=== PATIENT | female | born 1940 | race Hispanic/Latino ===

== ENCOUNTER 2020-05-09 16:19 | Inpatient (IN) | payer MEDICARE, MEDICAID ==
[2020-05-09] MEDS ORDERED: Acetaminophen 500 MG TAB PO PRN (20:56)
[2020-05-09] MEDS ORDERED: BUPROPION 75 MG PO SCH (21:00)
[2020-05-09] MEDS ORDERED: Dextrose 5% in Water 1,000 ML IV PRN (21:01)
[2020-05-09] MEDS ORDERED: HumaLOG 300 UNITS/3 ML VIAL SC PRN (21:01)
[2020-05-09] MEDS ORDERED: Dextrose 50% Abboject 50 ML SYRINGE SLOW IVP PRN (21:01)
[2020-05-09] MEDS ORDERED: Albuterol Sulfate 2.5 mg/3 ml Neb NEB PRN (21:03)
[2020-05-09] MEDS ORDERED: Polyethylene Glycol 3350 17 GM Packet PO PRN (21:08)
[2020-05-10] MEDS: Carvedilol 3.125 MG TAB PO SCH ×3 (04:48→20:44)
[2020-05-10 05:09] LABS: #Eosinphils 0.2 thou/uL (0.0-0.7); #Lymphocytes 1.6 thou/uL (1.20-3.40); #Monocytes 0.7 thou/uL (0.11-0.59); #Neutrophils 3.8 thou/uL (1.40-6.50); %Basophils 0.6 % (0.0-1.0); %Eosinophils 2.7 % (0.0-10.0); %Lymphocytes 25.1 % (21.0-51.0); %Monocytes 11.2 % (0.0-10.0); %Neutrophils 60.3 % (42.0-75.0); Hemoglobin 6.3 g/dL (12.0-16.0); Mean Corpuscular HGB CONC 31.9 g/dL (32.0-36.0); Mean Corpuscular Hemoglobin 26.9 pg (27.0-31.0); Mean Corpuscular Volume 84.3 fL (78.0-98.0); Mean Platelet Volume 6.8 fL (7.4-10.4); Platelet Count 129 thou/uL (130-400); RBC Distribution Width 14.8 % (11.5-14.5); Red Blood Cell (RBC) Count 2.35 mill/uL (4.20-5.40); White Blood Cell (WBC) Count 6.2 thou/uL (4.8-10.8)
[2020-05-10 05:21] LABS: ALT (SGPT) 9 U/L (8-55); AST (SGOT) 15 U/L (5-34); Albumin 2.7 g/dL (3.4-4.8); Alkaline Phosphatase 78 U/L (40-110); Anion Gap 13 mmol/L (10-20); BUN (Urea Nitrogen) 19 mg/dL (9.8-20.1); Bilirubin, Total 0.5 mg/dL (0.2-1.2); Calc. Creatinine Clearance 61 mL/min (70-130); Carbon Dioxide 22 mmol/L (23-31); Chloride 107 mmol/L (98-107); Globulin 2.4 g/dL (2.4-3.5); Glucose 129 mg/dL (83-110); Potassium 4.5 mmol/L (3.5-5.1); Protein, Total 5.1 g/dL (6.0-8.3); Sodium 137 mmol/L (136-145)
[2020-05-10] MEDS ORDERED: Levothyroxine Sodium 50 MCG TAB PO SCH (06:00)
[2020-05-10] MEDS ORDERED: Milk Of Magnesia 30 ML UDCUP PO PRN (06:15)
[2020-05-10] MEDS ORDERED: Ferrous Sulfate 325 MG TAB PO SCH (08:00)
[2020-05-10] MEDS ORDERED: Glimepiride 2 MG TAB PO SCH (08:00)
[2020-05-10] MEDS ORDERED: Trospium 20 MG TAB PO SCH (09:00)
[2020-05-10] MEDS ORDERED: Furosemide 40 MG TAB PO SCH (09:00)
[2020-05-10] MEDS ORDERED: Non-Formulary Item 1 EACH (Insulin Degludec [Tresiba Flextouch U-100] 100 UNIT/ML Insuln. SQ SCH (09:00)
[2020-05-10] MEDS ORDERED: Aspirin 81 mg Enteric Coated Tablet PO SCH (09:00)
[2020-05-10] MEDS ORDERED: Lantus 1000 UNITS/10 ML VIAL SC SCH (09:00)
[2020-05-10] MEDS ORDERED: Mometasone/Formoterol 200/5 60 PUFF INH SCH (09:00)
[2020-05-10] MEDS ORDERED: Allopurinol 100 MG TAB PO SCH (09:00)
[2020-05-10] MEDS ORDERED: Ezetimibe 10 MG TAB PO SCH (09:00)
[2020-05-10] MEDS ORDERED: FLU VACC QS2020-21(65YR UP)/PF 240 MCG/0.7 ML SYRINGE IM ONE (09:00)
[2020-05-10] MEDS ORDERED: Calcitriol 0.25 MCG CAP PO SCH (09:00)
--- NOTE | 2020-05-10 09:10 | HP ---
CHIEF COMPLAINT: Physical deconditioning with wound care need status post skin graft to left lower extremity. HISTORY OF PRESENT ILLNESS: A 80-year-old female presenting to our long term facility to participate with Physical Therapy and Occupational Therapy along with receiving wound care status post admission at [facility] in [place]. She presented there status post fall within her shower sustaining the injury to her left lower extremity. She has a history of atrial fibrillation for which she was chronically anticoagulated with Eliquis and subsequently developed a large hematoma focal to the left lower extremity. This unfortunately developed into an area of skin necrosis, which required debridement and temporary placement of a wound VAC. She did receive IV cefepime under the guidance of Infectious Disease. She subsequently underwent skin grafting to the site shortly prior to arrival here as well. During her stay in [place], she did require 3 units of packed red blood cells secondary to low hemoglobin levels. Upon repeat of her blood work here this morning, her hemoglobin is notably low again at 6.3, which will require further packed red blood cell transfusion. Of note, her Eliquis has continued to be held. She otherwise appears comfortable and medically stable. PAST MEDICAL HISTORY: Includes type 2 diabetes mellitus, hypertension, hyperlipidemia, gout, asthma, and coronary artery disease. PAST SURGICAL HISTORY: Includes bypass grafting, pacemaker, and left hip surgery along with left lower extremity debridement and skin grafting. SOCIAL HISTORY: She lives in [place] with family members. Nonsmoker with no alcohol or illicit drug use. ALLERGIES: TO NAPROXEN. HOME MEDICATIONS: Include, 1. Wellbutrin 75 mg b.i.d. 2. Detrol 2 mg b.i.d. 3. MiraLAX 17 g daily p.r.n. 4. Levothyroxine 50 mcg daily. 5. Tresiba 18 units daily. 6. Glimepiride 1 mg daily. 7. Lasix 40 mg daily. 8. Zetia 10 mg daily. 9. Dexilant 60 mg daily. 10. Coreg 3.125 mg b.i.d. 11. Calcitriol 0.25 mcg daily. 12. Symbicort two puffs inhaled b.i.d. 13. Atorvastatin 80 mg at bedtime. 14. Aspirin 81 mg daily. 15. Allopurinol 300 mg daily. 16. Tylenol 1000 mg q.6 hours p.r.n. 17. Ventolin inhaler one puff q.6 hours p.r.n. LABORATORY DATA: White blood cell count of 6.2, hemoglobin 6.3, hematocrit 19.8, and platelets are 129. Sodium 137, potassium 4.5, BUN is 19, creatinine 1.08 with GFR of 49, glucose 129, AST 15, ALT is 9. PHYSICAL EXAMINATION: VITAL SIGNS: Temperature is 98, blood pressure 106/56, pulse is 81, respiratory rate is 16, oxygen is 100% on room air. GENERAL: The patient is alert and oriented, in no acute distress. She is obese. HEAD, EYES, EARS, NOSE, AND THROAT: She is normocephalic. She has a small abrasion to the upper central forehead. Pupils are equal, round, and reactive to light. Extraocular muscles are intact. She has moist mucous membranes. NECK: Supple without lymphadenopathy. CARDIOVASCULAR: She has a regular rate and rhythm with a normal S1, S2. She has a 3/6 murmur. RESPIRATORY: Clear to auscultation bilaterally without wheezes, rales, or rhonchi. ABDOMEN: Soft and nontender to palpation. No rebound or guarding. EXTREMITIES: She has no clubbing or cyanosis. She has both of her lower extremities wrapped at present with clean and dry bandages. She is neurovascularly intact distally. SKIN: She has scattered ecchymosis to extremities. NEUROLOGIC: Nonfocal with cranial nerves 2 through 12 grossly intact. MUSCULOSKELETAL: She has generalized weakness. ASSESSMENT AND PLAN: 1. History of left lower extremity hematoma, status post debridement and skin grafting. The patient is afebrile with no leukocytosis. She is status post antibiotic therapy via cefepime. Planned f/u with Dr. Coates in ~1 week. 2. Acute blood loss anemia. Her anticoagulation has been held. She is being typed and crossed to receive 2 units of packed red blood cells. We will start the patient on supplemental iron as she was not already on this. We will trend her CBC. 3. Physical deconditioning. The patient is to participate with Physical Therapy and Occupational Therapy. 4. Paroxysmal atrial fibrillation. The patient is rate controlled and in normal sinus rhythm intake. Anticoagulation is being held as stated. 5. Coronary artery disease, history of bypass grafting. She will continue her statin therapy. 6. Type 2 diabetes mellitus. We will continue her baseline medication regimen for which she is on insulin and oral therapy. We will add a sliding scale Humalog and have a.c. and bedtime glucose checks. 7. Hypothyroidism. Levothyroxine will be continued. 8. Gout. Allopurinol will be continued. 9. Anxiety and depression. We will resume her usual medications for this. 10. Prophylaxis. We will continue GI prophylaxis with her proton pump inhibitor. Anticoagulation will not be provided secondary to her requiring transfusion of packed red blood cells. DISPOSITION: We will plan for the patient to be able to return back to her home when able and stable from a functional status standpoint and stable blood levels. Job ID: [id number] MTDD
[2020-05-10] MEDS ORDERED: BUPROPION 75 MG PO SCH (10:45)
[2020-05-10 11:25] VITALS: BMI 17.7
[2020-05-10 12:10] LABS: Glucose 180 mg/dL (83-110)
[2020-05-10] MEDS ORDERED: Furosemide 20 MG/2 ML VIAL SLOW IVP SCH (13:00)
[2020-05-10] MEDS ORDERED: Albuterol Sulfate 2.5 mg/3 ml Neb NEB PRN (16:47)
[2020-05-10] MEDS ORDERED: Dextrose 5% in Water 1,000 ML IV PRN (16:49)
[2020-05-10] MEDS ORDERED: Dextrose 50% Abboject 50 ML SYRINGE SLOW IVP PRN (16:49)
[2020-05-10] MEDS: Ferrous Sulfate 325 MG TAB PO SCH (17:01)
[2020-05-10 17:10] LABS: Glucose 163 mg/dL (83-110)
[2020-05-10] MEDS: HumaLOG 300 UNITS/3 ML VIAL SC PRN (17:26)
[2020-05-10] MEDS: Atorvastatin Calcium 40 MG TAB PO SCH (20:44)
[2020-05-10] MEDS: Trospium 20 MG TAB PO SCH (20:44)
[2020-05-10] MEDS: Milk Of Magnesia 30 ML UDCUP PO PRN (20:45)
[2020-05-10] MEDS: BUPROPION 75 MG PO SCH (20:45)
[2020-05-10] MEDS: Mometasone/Formoterol 200/5 60 PUFF INH SCH (20:57)
[2020-05-10] MEDS ORDERED: Atorvastatin Calcium 40 MG TAB PO SCH (21:00)
[2020-05-11] MEDS: Levothyroxine Sodium 50 MCG TAB PO SCH (05:01)
[2020-05-11] MEDS ORDERED: FLU VACC QS2020-21(65YR UP)/PF 240 MCG/0.7 ML SYRINGE IM ONE (09:00)
[2020-05-11] MEDS: Trospium 20 MG TAB PO SCH ×2 (09:26→21:53)
[2020-05-11] MEDS: Calcitriol 0.25 MCG CAP PO SCH (09:27)
[2020-05-11] MEDS: Furosemide 40 MG TAB PO SCH (09:27)
[2020-05-11] MEDS: Ezetimibe 10 MG TAB PO SCH (09:27)
[2020-05-11] MEDS: Carvedilol 3.125 MG TAB PO SCH ×2 (09:27→21:53)
[2020-05-11] MEDS: Aspirin 81 mg Enteric Coated Tablet PO SCH (09:27)
[2020-05-11] MEDS: Ferrous Sulfate 325 MG TAB PO SCH ×2 (09:28→16:48)
[2020-05-11] MEDS: Allopurinol 100 MG TAB PO SCH (09:28)
[2020-05-11] MEDS: Lantus 1000 UNITS/10 ML VIAL SC SCH (09:29)
[2020-05-11] MEDS: Glimepiride 2 MG TAB PO SCH (09:29)
[2020-05-11] MEDS: Mometasone/Formoterol 200/5 60 PUFF INH SCH ×2 (09:35→21:53)
[2020-05-11] MEDS: BUPROPION 75 MG PO SCH ×2 (09:46→21:00)
[2020-05-11] MEDS: HumaLOG 300 UNITS/3 ML VIAL SC PRN ×2 (12:34→16:47)
[2020-05-11] MEDS: Milk Of Magnesia 30 ML UDCUP PO PRN (14:53)
[2020-05-11] MEDS: Atorvastatin Calcium 40 MG TAB PO SCH (21:52)
[2020-05-12] MEDS: Levothyroxine Sodium 50 MCG TAB PO SCH (06:00)
[2020-05-12] MEDS: Polyethylene Glycol 3350 17 GM Packet PO PRN (08:34)
[2020-05-12] MEDS: Aspirin 81 mg Enteric Coated Tablet PO SCH (08:35)
[2020-05-12] MEDS: Calcitriol 0.25 MCG CAP PO SCH (08:35)
[2020-05-12] MEDS: Ezetimibe 10 MG TAB PO SCH (08:35)
[2020-05-12] MEDS: Trospium 20 MG TAB PO SCH ×2 (08:35→20:49)
[2020-05-12] MEDS: Allopurinol 100 MG TAB PO SCH (08:36)
[2020-05-12] MEDS: Lantus 1000 UNITS/10 ML VIAL SC SCH (08:36)
[2020-05-12] MEDS: Carvedilol 3.125 MG TAB PO SCH ×2 (08:37→20:49)
[2020-05-12] MEDS: Ferrous Sulfate 325 MG TAB PO SCH ×2 (08:37→17:03)
[2020-05-12] MEDS: Glimepiride 2 MG TAB PO SCH (08:37)
[2020-05-12] MEDS: Furosemide 40 MG TAB PO SCH (08:38)
[2020-05-12] MEDS: BUPROPION 75 MG PO SCH ×2 (09:23→20:54)
[2020-05-12] MEDS: Mometasone/Formoterol 200/5 60 PUFF INH SCH ×2 (09:26→20:53)
[2020-05-12] MEDS: guaiFENesin ER 600 MG TAB PO PRN (12:18)
[2020-05-12] MEDS: HumaLOG 300 UNITS/3 ML VIAL SC PRN (17:01)
[2020-05-12] MEDS: Acetaminophen 500 MG TAB PO PRN (17:43)
[2020-05-12] MEDS: Atorvastatin Calcium 40 MG TAB PO SCH (20:49)
[2020-05-13] MEDS: Acetaminophen 500 MG TAB PO PRN ×2 (01:12→16:07)
[2020-05-13] MEDS: guaiFENesin ER 600 MG TAB PO PRN (01:12)
[2020-05-13] MEDS: Levothyroxine Sodium 50 MCG TAB PO SCH (05:15)
[2020-05-13 06:19] LABS: #Eosinphils 0.3 thou/uL (0.0-0.7); #Lymphocytes 1.5 thou/uL (1.20-3.40); #Monocytes 0.6 thou/uL (0.11-0.59); #Neutrophils 3.8 thou/uL (1.40-6.50); %Basophils 0.5 % (0.0-1.0); %Eosinophils 5.3 % (0.0-10.0); %Lymphocytes 24.6 % (21.0-51.0); %Monocytes 9.1 % (0.0-10.0); %Neutrophils 60.5 % (42.0-75.0); Hemoglobin 9.5 g/dL (12.0-16.0); Mean Corpuscular Hemoglobin 27.7 pg (27.0-31.0); Mean Corpuscular Volume 86.6 fL (78.0-98.0); Mean Platelet Volume 6.7 fL (7.4-10.4); Platelet Count 150 thou/uL (130-400); RBC Distribution Width 14.9 % (11.5-14.5); Red Blood Cell (RBC) Count 3.43 mill/uL (4.20-5.40); White Blood Cell (WBC) Count 6.3 thou/uL (4.8-10.8)
[2020-05-13] MEDS: Calcitriol 0.25 MCG CAP PO SCH (08:59)
[2020-05-13] MEDS: Ezetimibe 10 MG TAB PO SCH (08:59)
[2020-05-13] MEDS: Allopurinol 100 MG TAB PO SCH (08:59)
[2020-05-13] MEDS: Aspirin 81 mg Enteric Coated Tablet PO SCH (08:59)
[2020-05-13] MEDS: Carvedilol 3.125 MG TAB PO SCH ×2 (08:59→20:48)
[2020-05-13] MEDS: Trospium 20 MG TAB PO SCH ×2 (08:59→20:46)
[2020-05-13] MEDS: Furosemide 40 MG TAB PO SCH (09:00)
[2020-05-13] MEDS: Glimepiride 2 MG TAB PO SCH (09:00)
[2020-05-13] MEDS: Mometasone/Formoterol 200/5 60 PUFF INH SCH ×2 (09:02→20:47)
[2020-05-13] MEDS: Lantus 1000 UNITS/10 ML VIAL SC SCH (09:04)
[2020-05-13] MEDS: BUPROPION 75 MG PO SCH (09:06)
[2020-05-13] MEDS: Ferrous Sulfate 325 MG TAB PO SCH ×2 (09:06→17:19)
[2020-05-13] MEDS: HumaLOG 300 UNITS/3 ML VIAL SC PRN (12:57)
[2020-05-13] MEDS ORDERED: Acetaminophen/Codeine 30-300mg Tablet PO PRN (17:17)
[2020-05-13] MEDS: Benzonatate 100 MG CAP PO SCH (20:48)
[2020-05-13] MEDS: Atorvastatin Calcium 40 MG TAB PO SCH (20:48)
[2020-05-14] MEDS: Levothyroxine Sodium 50 MCG TAB PO SCH (05:09)
[2020-05-14] MEDS: Acetaminophen 500 MG TAB PO PRN (05:09)
[2020-05-14] MEDS: BUPROPION 75 MG PO SCH ×2 (05:13→09:26)
[2020-05-14] MEDS ORDERED: Bacitracin 1 PK TOP PRN (06:00)
[2020-05-14] MEDS: Allopurinol 100 MG TAB PO SCH (09:15)
[2020-05-14] MEDS: Glimepiride 2 MG TAB PO SCH (09:16)
[2020-05-14] MEDS: Trospium 20 MG TAB PO SCH ×2 (09:16→20:56)
[2020-05-14] MEDS: Calcitriol 0.25 MCG CAP PO SCH (09:16)
[2020-05-14] MEDS: Carvedilol 3.125 MG TAB PO SCH ×2 (09:16→20:56)
[2020-05-14] MEDS: Aspirin 81 mg Enteric Coated Tablet PO SCH (09:16)
[2020-05-14] MEDS: Ezetimibe 10 MG TAB PO SCH (09:16)
[2020-05-14] MEDS: Furosemide 40 MG TAB PO SCH (09:16)
[2020-05-14] MEDS: Benzonatate 100 MG CAP PO SCH ×3 (09:16→20:56)
[2020-05-14] MEDS: Ferrous Sulfate 325 MG TAB PO SCH ×2 (09:16→16:56)
[2020-05-14] MEDS: Mometasone/Formoterol 200/5 60 PUFF INH SCH (09:17)
[2020-05-14] MEDS: Lantus 1000 UNITS/10 ML VIAL SC SCH (09:25)
[2020-05-14] MEDS: Polyethylene Glycol 3350 17 GM Packet PO PRN (10:15)
[2020-05-14] MEDS: Milk Of Magnesia 30 ML UDCUP PO PRN (10:15)
[2020-05-14] MEDS: buPROPion 75 MG TAB PO SCH ×2 (10:45→20:56)
[2020-05-14] MEDS ORDERED: buPROPion 75 MG TAB PO SCH (10:45)
[2020-05-14] MEDS: guaiFENesin ER 600 MG TAB PO PRN (12:35)
[2020-05-14] MEDS: HumaLOG 300 UNITS/3 ML VIAL SC PRN (12:37)
[2020-05-14] MEDS ORDERED: Bacitracin Zinc Ointment 30 gm TUBE TOP PRN (15:59)
[2020-05-14] MEDS ORDERED: Acetaminophen/Codeine 30-300mg Tablet PO PRN (16:12)
[2020-05-14] MEDS: Atorvastatin Calcium 40 MG TAB PO SCH (20:56)
[2020-05-15] MEDS: Mometasone/Formoterol 200/5 60 PUFF INH SCH ×2 (04:06→21:02)
[2020-05-15] MEDS: Levothyroxine Sodium 50 MCG TAB PO SCH (05:26)
[2020-05-15 06:23] LABS: #Eosinphils 0.2 thou/uL (0.0-0.7); #Lymphocytes 1.7 thou/uL (1.20-3.40); #Monocytes 0.5 thou/uL (0.11-0.59); #Neutrophils 2.9 thou/uL (1.40-6.50); %Basophils 0.9 % (0.0-1.0); %Eosinophils 4.1 % (0.0-10.0); %Lymphocytes 31.6 % (21.0-51.0); %Monocytes 9.2 % (0.0-10.0); %Neutrophils 54.3 % (42.0-75.0); Hemoglobin 9.8 g/dL (12.0-16.0); Mean Corpuscular HGB CONC 31.4 g/dL (32.0-36.0); Mean Corpuscular Hemoglobin 27.4 pg (27.0-31.0); Mean Corpuscular Volume 87.4 fL (78.0-98.0); Mean Platelet Volume 6.9 fL (7.4-10.4); Platelet Count 172 thou/uL (130-400); RBC Distribution Width 15.6 % (11.5-14.5); Red Blood Cell (RBC) Count 3.59 mill/uL (4.20-5.40); White Blood Cell (WBC) Count 5.3 thou/uL (4.8-10.8)
[2020-05-15] MEDS: Allopurinol 100 MG TAB PO SCH (08:20)
[2020-05-15] MEDS: Lantus 1000 UNITS/10 ML VIAL SC SCH (08:20)
[2020-05-15] MEDS: Trospium 20 MG TAB PO SCH ×2 (08:21→21:01)
[2020-05-15] MEDS: Aspirin 81 mg Enteric Coated Tablet PO SCH (08:21)
[2020-05-15] MEDS: Ezetimibe 10 MG TAB PO SCH (08:21)
[2020-05-15] MEDS: buPROPion 75 MG TAB PO SCH ×2 (08:21→21:01)
[2020-05-15] MEDS: Glimepiride 2 MG TAB PO SCH (08:22)
[2020-05-15] MEDS: Ferrous Sulfate 325 MG TAB PO SCH ×2 (08:22→17:37)
[2020-05-15] MEDS: Carvedilol 3.125 MG TAB PO SCH ×2 (08:22→21:01)
[2020-05-15] MEDS: Benzonatate 100 MG CAP PO SCH ×3 (08:22→21:01)
[2020-05-15] MEDS: Calcitriol 0.25 MCG CAP PO SCH (08:22)
[2020-05-15] MEDS: Furosemide 40 MG TAB PO SCH (08:24)
[2020-05-15] MEDS: HumaLOG 300 UNITS/3 ML VIAL SC PRN ×2 (11:56→16:59)
[2020-05-15] MEDS: Atorvastatin Calcium 40 MG TAB PO SCH (21:01)
[2020-05-15] MEDS ORDERED: Mag-Al Plus 1200 MG/1200 MG/120 MG/30 ML UDCUP PO PRN (21:35)
[2020-05-16] MEDS: Acetaminophen 500 MG TAB PO PRN (02:27)
[2020-05-16] MEDS: Levothyroxine Sodium 50 MCG TAB PO SCH (05:16)
[2020-05-16 05:57] VITALS: BP 121/56; TEMP 98.3
[2020-05-16] MEDS: Calcitriol 0.25 MCG CAP PO SCH (08:33)
[2020-05-16] MEDS: Lantus 1000 UNITS/10 ML VIAL SC SCH (08:33)
[2020-05-16] MEDS: Ferrous Sulfate 325 MG TAB PO SCH (08:33)
[2020-05-16] MEDS: Ezetimibe 10 MG TAB PO SCH (08:33)
[2020-05-16] MEDS: Allopurinol 100 MG TAB PO SCH (08:33)
[2020-05-16] MEDS: Benzonatate 100 MG CAP PO SCH (08:34)
[2020-05-16] MEDS: Furosemide 40 MG TAB PO SCH (08:34)
[2020-05-16] MEDS: Carvedilol 3.125 MG TAB PO SCH (08:34)
[2020-05-16] MEDS: Aspirin 81 mg Enteric Coated Tablet PO SCH (08:34)
[2020-05-16] MEDS: Trospium 20 MG TAB PO SCH (08:34)
[2020-05-16] MEDS: buPROPion 75 MG TAB PO SCH (08:34)
[2020-05-16] MEDS: Glimepiride 2 MG TAB PO SCH (08:35)
[2020-05-16] MEDS: Mometasone/Formoterol 200/5 60 PUFF INH SCH (08:39)
[2020-05-16] MEDS: HumaLOG 300 UNITS/3 ML VIAL SC PRN (12:29)
--- NOTE | 2020-05-18 09:36 | DIS ---
DATE OF ADMISSION: 05/09/2020 DATE OF DISCHARGE: 05/16/2020 ADMISSION DIAGNOSES: 1. History of left lower extremity hematoma, status post skin graft. 2. Acute blood loss anemia. 3. Physical deconditioning. SECONDARY DIAGNOSES: Paroxysmal atrial fibrillation, coronary artery disease, type 2 diabetes mellitus, hypothyroidism, gout, anxiety and depression. PROCEDURES: None. HOSPITAL COURSE: This is a 80-year-old female, who presented to our [facility] facility to participate with physical therapy, occupational therapy, and receive wound care status post acute admission at [facility] in [place]. The patient is status post fall resulting in a large hematoma, focal to the left lower extremity; this was magnified secondary to her being chronically anticoagulated with Eliquis due to her history of atrial fibrillation. The hematoma developed into an area of skin necrosis requiring debridement and temporary placement of a wound VAC. She received IV cefepime via the guidance of Infectious Disease, Dr. Last. The patient subsequently underwent skin grafting to this site prior to transitioning to our facility. During her stay in [place], she did require 3 units of packed red blood cells, secondary to low hemoglobin levels. Her CBC was obtained upon arrival to our facility and notably low at 6.3, for which she was administered 2 units of packed red blood cells. Subsequent hemoglobin readings over the next 5 days stabilized at 10.0, 9.5, and 9.8. She was also started on daily oral iron supplementation. The patient did participate with therapy and has improved her functional status in order to be able to return home at this time. Wound care was provided as instructed per Dr. Noble, who advised changes of her donor graft site bandage to right thigh to be changed every 3 days. She is to follow up with Dr. Noble on May 27. DISPOSITION: The patient will be discharged to home, where she lives with family members. She is to follow up with Dr. Noble on May 27 at 9:30 in the morning. She has been set up with [facility] for further transition of care in regard to therapy and wound care. She does have a hospital bed at home and will need the use of a walker to provide safe ambulation. DISCHARGE MEDICATIONS: One new medication will be ferrous sulfate 325 mg daily. She may, otherwise, resume her usual medications includin. Wellbutrin 75 mg b.i.d. 2. Detrol 2 mg b.i.d. 3. MiraLAX 17 g daily p.r.n. 4. Levothyroxine 50 mcg. 5. Tresiba 18 units daily. 6. Glimepiride 1 mg daily. 7. Lasix 40 mg daily. 8. Zetia 10 mg daily. 9. Dexilant 60 mg daily. 10. Coreg 3.125 mg b.i.d. 11. Calcitriol 0.25 mcg daily. 12. Symbicort two puffs inhaled b.i.d. 13. Atorvastatin 80 mg at bedtime. 14. Aspirin 81 mg daily. 15. Allopurinol 300 mg daily. 16. Tylenol 1000 mg q.6 hours p.r.n. 17. Ventolin inhaler one puff q.6 hours p.r.n. Of note, Eliquis has been held throughout her hospitalization secondary to her acute blood loss anemia, requiring packed red blood cell transfusions. This will likely need to be restarted in the near future by her primary care provider with approval by her surgeon, Dr. Noble. Total time spent in preparation and discharge of this patient is greater than 30 minutes. Job ID: [id number] [id number]
== END 2020-05-16 13:23 | disposition home or self-care (01) | DRG 949 ==
LOC: BURMED 19:43 → UNDODISIN 05-10 10:37
PROVIDERS: ADMIT Family Medicine; ATTEND Family Medicine
DX: S80.12XD Contusion of left lower leg, subsequent encounter (principal); D62 Acute posthemorrhagic anemia; R53.81 Other malaise; I48.0 Paroxysmal atrial fibrillation; I25.10 Atherosclerotic heart disease of native coronary artery without angina pectoris; E11.9 Type 2 diabetes mellitus without complications; E03.9 Hypothyroidism, unspecified; M10.9 Gout, unspecified; F41.9 Anxiety disorder, unspecified; F32.9 Major depressive disorder, single episode, unspecified; I10 Essential (primary) hypertension; E78.5 Hyperlipidemia, unspecified; J45.909 Unspecified asthma, uncomplicated; W19.XXXD Unspecified fall, subsequent encounter; Z95.1 Presence of aortocoronary bypass graft; Z98.890 Other specified postprocedural states; Z88.8 Allergy status to other drugs, medicaments and biological substances; Z79.82 Long term (current) use of aspirin; Z79.899 Other long term (current) drug therapy
CPT/HCPCS: 36415; 36416; 36430; 80053; 85025; 86850; 86900; 86901; 94664; J1815; J1940; P9016